=== PATIENT | female | born 2000 | race Caucasian/White ===

== ENCOUNTER 2018-12-20 09:55 | Day surgery (SDC) | payer BC ==
[~2018-12-20 09:55] MED LIST: Buffered Lidocaine 1% SYRIN* 1 ML/SYRINGE INTRADERM ONE; Lactated Ringers 1000 ML Bag* 1,000 ML IV SCH; Sodium Citrate/Citric Acid* 15 ML UDC PO ONE
[2018-12-20] MEDS ORDERED: Buffered Lidocaine 1% SYRIN* 1 ML/SYRINGE INTRADERM ONE (10:27)
[2018-12-20] MEDS ORDERED: Sodium Citrate/Citric Acid* 15 ML UDC ONE (10:27)
[2018-12-20] MEDS ORDERED: Dexamethasone IV* 4 MG/ML 1 ML (4 MG) ONE (11:54)
[2018-12-20] MEDS ORDERED: fentaNYL* 50 MCG/ML 2 ML VIAL (100 MCG VIAL) ONE ×2 (11:54→12:55)
[2018-12-20] MEDS ORDERED: Propofol* 10 MG/ML 20 ML BTL ONE ×2 (11:54→12:33)
[2018-12-20] MEDS ORDERED: Midazolam* 1 MG/ML 2 ML VIAL (2 MG) ONE (11:54)
[2018-12-20] MEDS ORDERED: Lidocaine 2% PF * 5 ML VIAL ONE (11:55)
[2018-12-20] MEDS ORDERED: Ondansetron INJ* 2 MG/ML VIAL IV PRN (12:54)
[2018-12-20] MEDS ORDERED: Naloxone* 0.4 MG/ML 1 ML VIAL IV PRN (12:54)
[2018-12-20] MEDS ORDERED: Acetaminophen IV 1GM/100ML * 1,000 MG/100 ML VIAL IVPB ONE (12:54)
[2018-12-20] MEDS: fentaNYL* 50 MCG/ML 2 ML VIAL (100 MCG VIAL) IV PRN ×3 (12:56→13:30)
[2018-12-20] MEDS ORDERED: Acetaminophen IV 1GM/100ML * 100 ML ONE (12:57)
[2018-12-20] MEDS ORDERED: Ondansetron INJ* 2 MG/ML VIAL ONE (13:25)
[2018-12-20] MEDS ORDERED: HYDROcodone/ACET. 7.5/325 LIQ* 15 ML UDC ONE (13:27)
[2018-12-20 13:34] VITALS: BP 114/63
--- NOTE | 2018-12-20 13:56 | OP ---
OPERATIVE REPORT: DATE OF OPERATION: 12/20/18 DATE OF : 89 ATTENDING SURGEON: Ashutosh Hirsch MD CUSTOMER SUPPORT MANAGER: None. ANESTHESIA: General. PRE-OP DIAGNOSIS: Chronic tonsillitis. POST-OP DIAGNOSIS: Chronic tonsillitis. OPERATIVE PROCEDURE: Tonsillectomy. ESTIMATED BLOOD LOSS: Negligible. SPECIMENS: Right and left tonsils to Pathology. INDICATIONS: This is a 18-year-old woman who has had problems with recurrent tonsillitis. DESCRIPTION OF PROCEDURE: On 12/20/18, the patient was brought to the operating room. General anest hesia was induced and an oral endotracheal tube was placed. Time-out was performed. Table was turned . The patient was draped. Head wrap was applied. A McIvor mouth gag was used to facilitate exposur e to the oropharynx and was suspended from the Fenton stand. The right tonsil was addressed first. It was grasped with straight Allis forceps, retracted medially and dissected free off its fossa with a coblation device at a setting of 7 and 3. There was no bleeding. The left tonsil was removed in an identical fashion, again utilizing the coblation device at a setting of 7 and 3 with no bleeding. On ce the tonsils were removed, the superior and inferior pole regions of the tonsillar fossa were proph ylactically cauterized with bipolar function on the device at a setting of 5. The stomach was then e vacuated with an orogastric tube. The mouth gag was left down for a period of a minute. It was then opened again. There was no evidence of any bleeding and so the patient was returned to the care of the anesthesiologist. She was extubated and delivered to the PACU. [id number]/[facility] #: [id number]
[2018-12-20] MEDS ORDERED: Ondansetron ODT TAB* 4 MG ONE (14:07)
== END 2018-12-20 14:27 | disposition home or self-care (01) ==
LOC: OR 09:55
PROVIDERS: ATTEND Otolaryngology
DX: J35.01 Chronic tonsillitis (principal); F43.10 Post-traumatic stress disorder, unspecified; F41.9 Anxiety disorder, unspecified
CPT/HCPCS: 81025; 88304; A9270-GY; J1100; J2250; J2405; J2704; J3010

== ENCOUNTER → 2019-05-28 12:34 | Day surgery (SDC) | payer BC ==
[~2019-05-28 12:34] MED LIST changes: +Bupivacaine 0.5%* 50 ML MDV VIAL ONE; +Dexamethasone IV* 4 MG/ML 1 ML (4 MG) IV SLOW PU ONE; +Dexamethasone IV* 4 MG/ML 1 ML (4 MG) ONE; +DiMENhydriNATE IV* 50 MG/ML VIAL IV PUSH PRN; +Famotidine IV* 10 MG/ML 2 ML (20 mg) IV ONE; +Famotidine IV* 10 MG/ML 2 ML (20 mg) ONE; +HYDROcodone/ACETAMIN 5-325 MG* 1 TAB PO PRN; +Ketorolac INJ* 30 MG/ML 1 ML VIAL IV PRN; +Ketorolac INJ* 30 MG/ML 1 ML VIAL ONE; +Lidocaine 2% PF * 5 ML VIAL ONE; +Midazolam* 1 MG/ML 5 ML VIAL (5 MG) ONE; +Naloxone* 0.4 MG/ML 1 ML VIAL IV PRN; +Ondansetron INJ* 2 MG/ML VIAL ONE; +Propofol* 10 MG/ML 20 ML BTL ONE; +Rocuronium* 10 MG/ML VIAL ONE; -Sodium Citrate/Citric Acid* 15 ML UDC PO ONE; +Sugammadex * 500 MG/5 ML VIAL IV PUSH ONE; +ceFAZolin 2 GM in NS PREMIX(*) 2 GM/100 ML BAG IVPB ONE; +fentaNYL* 50 MCG/ML 2 ML VIAL (100 MCG VIAL) ONE; +oxyCODONE/Acetamin 5/325 MG* TAB ONE; +oxyCODONE/Acetamin 5/325 MG* TAB PO PRN
[2019-05-28] MEDS: fentaNYL* 50 MCG/ML 2 ML VIAL (100 MCG VIAL) IV PRN ×3 (16:48→17:45)
[2019-05-28 18:08] VITALS: BP 117/73
--- NOTE | 2019-05-29 00:55 | OP ---
DATE OF OPERATION: 05/28/19 - [facility] DATE OF : [birth year] ATTENDING SURGEON: Fito Hein MD BAKING FACTORY WORKER: Kati Velazco RN PRE-OP DIAGNOSIS: Umbilical hernia. POST-OP DIAGNOSIS: Umbilical hernia. OPERATIVE PROCEDURE: Repair of umbilical hernia, robotic. INDICATIONS FOR PROCEDURE: Symptomatic umbilical hernia. Risks included, but not limited to bleeding, infection, injury to the bowel or recurrence of the hernia explained to the patient, who seemed to understand and agreed to the procedure and all questions were answered. DESCRIPTION OF PROCEDURE: The patient was taken to the operating room and placed supine. Preoperative antibiotics were given. After the successful induction of general endotracheal anesthesia, the abdomen was prepped and draped in a sterile fashion. Trocars were placed in the left upper quadrant under direct visualization of the camera. Using a bladeless Optiview trocar, pneumoperitoneum was achieved with 15 mmHg. A camera was placed in the abdomen and the abdomen was scanned. There was no obvious injury from trocar placement. A subxiphoid and right upper quadrant trocar were placed under direct visualization. Initial trocar was a 5 mm bladeless Optiview. The second two trocars were 8-mm blunt robotic trocars. The 5- mm was then replaced with an 8- mm trocar under direct visualization of the camera. The robot was brought and then docked. The peritoneum was taken down and the hernia contents were evacuated, which was all preperitoneal fat. Hernia defect was then closed with running 0 locking barbed suture, absorbable. The peritoneum was then tacked back up to the anterior abdominal wall bearing the closure site and the suture. The needle was removed. The abdomen was scanned. There was no obvious injury noted. Pneumo-peritoneum was released from the abdomen. The trocars were removed. The skin was closed with Monocryl and glue. The patient tolerated the procedure well. She was extubated and was taken to the recovery room in stable condition. [id number]/[facility] #: [id number] [facility]
== END | disposition home or self-care (01) ==
LOC: OR 12:34
PROVIDERS: ATTEND Surgery
DX: K42.9 Umbilical hernia without obstruction or gangrene (principal); F90.9 Attention-deficit hyperactivity disorder, unspecified type; F41.9 Anxiety disorder, unspecified
CPT/HCPCS: 49652; S2900; 81025; A9270-GY; J0690; J1100; J1885; J2250; J2405; J2704; J3010; J3490